=== PATIENT | male | born 2005 | race Caucasian/White ===

== ENCOUNTER 2024-04-25 17:55 | Outpatient (REF) | payer OTHER, SELFPAY ==
--- NOTE | ~2024-04-25 | MR_ITS ---
EXAMINATION: MR LOWER EXTREMITY WITHOUT CONTRAST, LEFT CLINICAL INFORMATION: Pain COMPARISON: None available. TECHNIQUE: MRI of the left foot was performed using routine sequences on a high-field scanner. [id number] includes the forefoot and distal midfoot FINDINGS: Osseous structures: The 5th metatarsal: There is a fracture versus a incompletely fused apophysis of the proximal metatarsal. There is bone marrow edema crossing the fracture or physis. There is also bone marrow edema along the plantar aspect of the base of 4th metatarsal compatible with bone contusion versus nondisplaced fracture. The remaining bones joints and soft tissues are normal. MR/MR foot LT wo con IMPRESSION: Incompletely healed fracture of the proximal 5th metatarsal versus stress reaction across across an unfused 5th metatarsal apophysis Bone contusion or stress reaction or nondisplaced fracture of the base of the 4th metatarsal. Electronically signed by: Nic Hutson MD 04/26/2024 08:52 AM EDT
== END 2024-04-25 17:56 | disposition home or self-care (01) ==
LOC: HO.MRI 17:55
PROVIDERS: Visit Provider Family Medicine
DX: M79.672 Pain in left foot (principal)
CPT/HCPCS: 73718